=== PATIENT | female | born 1990 | race Hispanic/Latino ===

== ENCOUNTER 2017-01-14 20:13 | Observation (INO) | payer BC, OTHER ==
[2017-01-14 20:23] VITALS: BP 137/77; PULSE 78; RESP 16; TEMP 98.6; O2SAT 100
[2017-01-14] MEDS ORDERED: Iohexol 240 (50 ml) PO ONE (21:07)
[2017-01-14] MEDS ORDERED: Iohexol 240 (50 ml) ONE (21:13)
[2017-01-14 21:34] LABS: BASO # 0.1 K/uL (0.0-0.2); BASO % 0.4 % (0.0-2.0); EOS # 0.1 K/uL (0.0-0.7); EOS % 0.6 % (0.0-4.0); HEMATOCRIT 40.1 % (34.0-47.0); LYMPH # 2.1 K/uL (1.0-4.3); LYMPH % 15.8 % (20.0-40.0); MEAN CELL VOLUME 87.6 fl (81.0-99.0); MEAN CORPUSCULAR HEMOGLOBIN 28.8 pg (27.0-31.0); MEAN CORPUSCULAR HGB CONC 32.9 g/dL (33.0-37.0); MEAN PLATELET VOLUME 8.9 fl (7.2-11.7); MONO # 0.6 K/uL (0.0-0.8); NEUT # 10.2 K/uL (1.8-7.0); NEUT % 78.2 % (50.0-75.0); NRBC % 0.1 % (0.0-0.0); RED CELL DISTRIBUTION WIDTH 12.1 % (11.5-14.5)
[2017-01-14 21:39] LABS: RBC URINE 2 /hpf (0-3); URINE BACTERIA RARE (<OCC); URINE BILIRUBIN NEGATIVE (NEGATIVE); URINE BLOOD NEGATIVE (NEGATIVE); URINE COLOR YELLOW (YELLOW); URINE GLUCOSE (UA) NEG (Normal); URINE KETONE NEGATIVE (NEGATIVE); URINE LEUKOCYTE ESTERASE NEG Leu/uL (Negative); URINE PROTEIN 30 mg/dL (NEGATIVE); URINE UROBILINOGEN 0.2-1.0 mg/dL (0.2-1.0); WBC URINE 3 /hpf (0-5)
[2017-01-14 21:45] LABS: ALB/GLOB RATIO 1.5 (1.0-2.1); ALKALINE PHOSPHATASE 52 U/L (38-126); ALT/SGPT 29 U/L (9-52); AST/SGOT 23 U/L (14-36); BILIRUBIN,TOTAL 0.5 mg/dl (0.2-1.3); BLOOD UREA NITROGEN 11 mg/dl (7-17); CALCIUM 9.8 mg/dL (8.4-10.2); CARBON DIOXIDE 24 mmol/L (22-30); CHLORIDE 101 mmol/L (98-107); GFR AFRICAN-AMERICAN > 60; GLUCOSE,RANDOM 92 mg/dL (65-105); LIPASE 257 U/L (23-300); POTASSIUM 3.9 MMOL/L (3.6-5.0); SODIUM 137 mmol/l (132-148); TOTAL PROTEIN 7.5 G/DL (6.3-8.2)
--- NOTE | 2017-01-14 22:00 | ED PDOC ---
HPI: Abdomen Time Seen by Provider: 01/14/17 20:25 Chief Complaint (Nursing): Abdominal Pain Chief Complaint (Provider): Abdominal pain History Per: Patient History/Exam Limitations: no limitations Onset/Duration Of Symptoms: Intermittent Episodes, Persistent Outside of [place] travel?: No Current Symptoms Are (Timing): Still Present Location Of Pain/Discomfort: LUQ Associated Symptoms: Nausea, Vomiting Additional History Per: Patient Additional Complaint(s): The pt is a 26yo female, presents to the ED for evaluation of a week of abdominal pain, located in her left upper quadrant, associated with vomiting and decreased appetite. Pt reports she has had the symptoms for a week, which had initially abated but presented again today. Pt reports she is unable to tolerate solids and can only tolerate liquid intake. She denies any fever or diarrhea. She offers no additional medical complaints. Past Medical History Reviewed: Historical Data, Nursing Documentation, Vital Signs Vital Signs: Last Vital Signs Temp 98.6 F 01/14/17 20:22 Pulse 78 01/14/17 20:22 Resp 16 01/14/17 20:22 BP 137/77 01/14/17 20:22 Pulse Ox 100 01/15/17 00:30 - Medical History PMH: No Chronic Diseases - Surgical History Surgical History: No Surg Hx - Family History Family History: States: Unknown Family Hx - Social History Current smoker - smoking cessation education provided: No Alcohol: None Drugs: Denies - Home Medications Home Medications: Ambulatory Orders Medication Instructions Recorded Ondansetron [Zofran] 4 mg PO Q6H PRN #10 tab 01/15/17 - Allergies Allergies/Adverse Reactions: Allergies Allergy/AdvReac Type Severity Reaction Status Date / Time Penicillins Allergy RASH Verified 01/14/17 20:21 Review of Systems ROS Statement: Except As Marked, All Systems Reviewed And Found Negative Constitutional: Negative for: Fever Gastrointestinal: Positive for: Vomiting, Abdominal Pain, Other (decreased appetite). Negative for: Diarrhea Physical Exam - Reviewed Nursing Documentation Reviewed: Yes Vital Signs Reviewed: Yes - Physical Exam Appears: Positive for: Non-toxic, Uncomfortable Head Exam: Positive for: ATRAUMATIC, NORMAL INSPECTION, NORMOCEPHALIC Skin: Positive for: Normal Color Eye Exam: Positive for: Normal appearance Neck: Positive for: Normal, Supple Cardiovascular/Chest: Positive for: Regular Rate, Rhythm Respiratory: Positive for: Normal Breath Sounds. Negative for: Respiratory Distress Gastrointestinal/Abdominal: Positive for: Soft, Tenderness (left upper quadrant tenderness). Negative for: Guarding Extremity: Positive for: Normal ROM. Negative for: Deformity, Swelling Neurologic/Psych: Positive for: Alert, Oriented. Negative for: Motor/Sensory Deficits - Laboratory Results Result Diagrams: 01/14/17 21:26 01/14/17 21:26 - ECG O2 Sat by Pulse Oximetry: 100 (RA) Pulse Ox Interpretation: Normal Medical Decision Making Medical Decision Making: Time: 2044 Impression: 26 y/o with abdominal pain, r/o cholecystitis, UTI, intraabdominal process Plan: -- CT AP w/ contrast -- Urine culture -- Labs -- ED Observation pending ER workup --Reassess Scribe Attestation: Documented by Janeth Solis acting as a scribe for Jimenez Mak MD Provider Scribe Attestation: All medical record entries made by the Scribe were at my direction and personally dictated by me. I have reviewed the chart and agree that the record accurately reflects my personal performance of the history, physical exam, medical decision making, and the department course for this patient. I have also personally directed, reviewed, and agree with the discharge instructions and disposition.2044 ED OBSERVATION Discharge: Yes Date of observation admission: 01/14/17 Time of observation admission: 21:11 - Observation admission statement Patient is being placed in observation because:: Pt w/ abdominal pain - Goals of Observation Goals of observation are:: Pending labs, CT AP - Progress Note Progress Note: 01/15/17 00:06 CT FINDINGS Lower thorax: The visualized portions of the lung bases are normal. ABDOMEN: Liver: Unremarkable. No mass. Gallbladder and bile ducts: The gallbladder is normal. No calcified stones. No ductal dilation. Pancreas: The pancreas is normal. Spleen: Unremarkable. Adrenals: The adrenal glands are normal. Kidneys and ureters: Unremarkable. No hydronephrosis. Stomach and bowel: Underdistention versus wall thickening of the terminal ileum. Appendix: The appendix is opacified with contrast through most of its course and appears unremarkable. The tip of the appendix does not demonstrate intraluminal contrast but measures 5-6 mm in caliber without definite adjacent fat stranding. PELVIS: Bladder: The bladder is decompressed but otherwise normal. Reproductive: The uterus is retroverted. ABDOMEN and PELVIS: Intraperitoneal space: Unremarkable. No free air. No significant fluid collection. Bones/joints: No acute fracture. No dislocation. Soft tissues: Unremarkable. Vasculature: Unremarkable. No abdominal aortic aneurysm. Lymph nodes: There are prominent lymph nodes in the mesentery, including right lower quadrant, measuring up to 1.2 cm in size. IMPRESSION: 1. There are prominent lymph nodes in the mesentery, including right lower quadrant, measuring up to 1.2 cm in size. Please correlate for the possibility of mesenteric adenitis or other causes of lymphadenopathy. 2. Underdistention versus wall thickening of the terminal ileum. Please correlate for the possibility of subtle terminal ileitis. 01/15/17 00:29 Dx: mesenteric adenitis, terminal ileitis pt aware of results of CT Patient is PO tolerant and is medically stable for discharge home. Recommended Motrin for pain as well as hydration and outpt follow up with GI 01/16/17 11:19 Disposition - Clinical Impression Clinical Impression: Terminal ileitis, Mesenteric adenitis - Patient ED Disposition Is Patient to be Admitted: No Counseled Patient/Family Regarding: Studies Performed, Diagnosis, Need For Followup - Disposition Disposition: Routine/Home Disposition Time: 00:30 Condition: IMPROVED
[2017-01-14] MEDS ORDERED: Iohexol 300 50 ML ONE (23:32)
[2017-01-14] MEDS ORDERED: Sodium Chloride 0.9% 50 ML IV ONE (23:32)
--- NOTE | 2017-01-15 10:41 | CT ---
PROCEDURE: CT Abdomen and Pelvis with contrast HISTORY: abdominal pain COMPARISON: None. TECHNIQUE: Contrast dose: Omnipaque 300, 90 cc. Radiation dose: Total exam DLP = 545 mGy-cm. This CT exam was performed using one or more of the following dose reduction techniques: Automated exposure control, adjustment of the mA and/or kV according to patient size, and/or use of iterative reconstruction technique. FINDINGS: LOWER THORAX: Unremarkable. LIVER: Unremarkable. No gross lesion or ductal dilatation. GALLBLADDER AND BILE DUCTS: Unremarkable. PANCREAS: Unremarkable. No gross lesion or ductal dilatation. SPLEEN: Unremarkable. ADRENALS: Unremarkable. No mass. KIDNEYS AND URETERS: Unremarkable. No hydronephrosis. No solid mass. VASCULATURE: Unremarkable. No aortic aneurysm. BOWEL: Unremarkable. No obstruction. No gross mural thickening. APPENDIX: Normal appendix. PERITONEUM: Unremarkable. No free fluid. No free air. LYMPH NODES: Unremarkable. No enlarged lymph nodes. BLADDER: Unremarkable. REPRODUCTIVE: 1.4 cm left adnexal cyst identified. Right adnexal compartment appears unremarkable. Retroverted uterus is identified. BONES: No acute fracture. OTHER FINDINGS: None. IMPRESSION: 1. Nonacute abdomen pelvis CT examination. 2. 1.4 cm left adnexal cyst. Concordant V rad preliminary results performed 01/15/2017.
== END 2017-01-15 00:55 | disposition home or self-care (01) ==
LOC: H.ER 20:13 → H.EROBSV 21:11
PROVIDERS: ADMIT Emergency Medicine; ATTEND Emergency Medicine
DX: K50.00 Crohn's disease of small intestine without complications (principal); I88.0 Nonspecific mesenteric lymphadenitis
CPT/HCPCS: 36415; 74177; 80053; 81003; 81025; 83690; 85025; 87086; 99281; G0378; J2405; Q9966; Q9967